=== PATIENT | male | born 1985 | race Two or more races ===

== ENCOUNTER 2021-07-28 08:54 | Emergency (ER) | payer OTHER ==
[~2021-07-28] VITALS: Ht 175.3 cm; Wt 94.5 kg
[2021-07-28 09:14] VITALS: BP 126/82
[2021-07-28] MEDS ORDERED: ACETAMINOPHEN 500 MG TABLET PO ONE (09:30)
[2021-07-28] MEDS ORDERED: LIDOCAINE 5% TRANSDERMAL PATCH TD ONE (09:30)
[2021-07-28] MEDS ORDERED: KETOROLAC TROMETHAMINE 30 MG/ML VIAL IM ONE (09:30)
[2021-07-28] MEDS ORDERED: IBUP-2070 PO (09:41)
[2021-07-28] MEDS ORDERED: LIDO700A15 TP (09:41)
== END 2021-07-28 09:52 | disposition home or self-care (01) ==
LOC: EMS 08:59
DX: S39.012A Strain of muscle, fascia and tendon of lower back, initial encounter (principal); Z98.890 Other specified postprocedural states; X50.0XXA Overexertion from strenuous movement or load, initial encounter; Y93.89 Activity, other specified; Y92.89 Other specified places as the place of occurrence of the external cause; Y99.0 Civilian activity done for income or pay
CPT/HCPCS: 96372; 99283; J1885

== ENCOUNTER 2021-09-26 08:02 | Emergency (ER) | payer OTHER ==
[~2021-09-26] VITALS: Ht 175.3 cm; Wt 96.4 kg
[~2021-09-26 08:02] MED LIST: IBUP-2070 PO; LIDO700A15 TP
[2021-09-26] MEDS ORDERED: CYCLOBENZAPRINE HCL 10 MG TABLET PO ONE (10:00)
[2021-09-26] MEDS ORDERED: KETOROLAC TROMETHAMINE 30 MG/ML VIAL IM ONE (10:00)
[2021-09-26] MEDS ORDERED: LIDOCAINE 5% TRANSDERMAL PATCH TD ONE (10:00)
[2021-09-26] MEDS ORDERED: CYCL-448 PO (11:23)
[2021-09-26 11:32] VITALS: BP 135/81
== END 2021-09-26 11:39 | disposition home or self-care (01) ==
LOC: EMS 08:02
DX: M54.50 Low back pain, unspecified (principal); Z87.39 Personal history of other diseases of the musculoskeletal system and connective tissue
CPT/HCPCS: 96372; 99283; J1885

== ENCOUNTER 2021-12-22 09:35 | Emergency (ER) | payer OTHER ==
[~2021-12-22] VITALS: Ht 175.3 cm; Wt 100.0 kg
[~2021-12-22 09:35] MED LIST changes: +CYCL-448 PO
[2021-12-22 10:14] LABS: BASOPHILS % (AUTO) 0.5 % (0.0-2.0); EOSINOPHILS % (AUTO) 7.8 % (1.0-6.0); HEMOGLOBIN 16.1 g/dL (13.5-17.5); LYMPHOCYTES # (AUTO) 2.1 K/uL (1.0-4.8); LYMPHOCYTES % (AUTO) 28.2 % (22.0-44.0); MEAN CORPUSCULAR HEMOGLOBIN 28.5 pg (26.0-34.0); MEAN CORPUSCULAR HGB CONC 33.4 G/dL (31.0-37.0); MEAN CORPUSCULAR VOLUME 85 fL (80-100); MONOCYTES # (AUTO) 0.4 K/uL (0.1-1.0); MONOCYTES % (AUTO) 5.9 % (2.0-9.0); NEUTROPHILS # (AUTO) 4.4 K/uL (1.8-7.7); NEUTROPHILS % (AUTO) 57.6 % (40.0-70.0); PLATELET COUNT (AUTO) 208 K/uL (150-450); RED BLOOD CELL COUNT(AUTO) 5.62 MIL/uL (4.50-5.90); RED CELL DISTRIBUTION WIDTH 13.7 % (11.5-14.5)
[2021-12-22] MEDS ORDERED: KETOROLAC TROMETHAMINE 30 MG/ML VIAL IVP ONE (10:15)
[2021-12-22] MEDS ORDERED: OMEPRAZOLE 20 MG CAPSULE PO ONE (10:15)
[2021-12-22] MEDS ORDERED: ACETAMINOPHEN 500 MG TABLET PO ONE ×2 (10:15→12:00)
[2021-12-22] MEDS ORDERED: MAG HYDROX/AL HYDROX/SIMETH ES 30 ML SUSPENSION UDCUP PO ONE (10:15)
[2021-12-22] MEDS ORDERED: ONDANSETRON HCL 4 MG/2 ML VIAL IVP ONE (10:15)
[2021-12-22 10:21] LABS: ANION GAP 6 mmol/L (8-16); CALCIUM, TOTAL 8.4 mg/dL (8.8-10.5); CARBON DIOXIDE 27 mmol/L (22-29); CHLORIDE 104 mmol/L (98-107); GLOMERULAR FILTR. RATE CALC > 60 mL/min (>60); GLUCOSE,RANDOM 98 mg/dL (70-110); POTASSIUM 3.9 mmol/L (3.5-5.1); SODIUM SERUM 137 mmol/L (136-145); UREA NITROGEN, BLOOD 10 mg/dL (7-18)
[2021-12-22 10:26] LABS: ALANINE AMINOTRANSFERASE 50 U/L (12-78); ALBUMIN 3.6 g/dL (3.4-5.0); ALKALINE PHOSPHATASE 82 U/L (46-116); ASPARTATE AMINOTRANSFERASE 21 U/L (15-37); BILIRUBIN,TOTAL 0.3 mg/dL (0.1-1.0); LIPASE 61 U/L (73-393); TOTAL PROTEIN, SERUM 7.3 g/dL (6.4-8.2)
[2021-12-22 11:20] VITALS: BP 121/80
[2021-12-22] MEDS ORDERED: MECLIZINE HCL 25 MG TABLET PO ONE (12:00)
[2021-12-22] MEDS ORDERED: ACET-66 PO (12:13)
[2021-12-22] MEDS ORDERED: OMEP20 PO (12:13)
[2021-12-22] MEDS ORDERED: MAG30ORA11 PO (12:13)
== END 2021-12-22 12:38 | disposition home or self-care (01) ==
LOC: EMS 09:39
DX: R10.13 Epigastric pain (principal); K29.70 Gastritis, unspecified, without bleeding; Z87.39 Personal history of other diseases of the musculoskeletal system and connective tissue; Z98.890 Other specified postprocedural states
CPT/HCPCS: 99284; 96374; 96375; 80053; 83690; 85025; 36415; J1885; J2405

== ENCOUNTER 2023-05-17 00:32 | Emergency (ER) | payer OTHER ==
[~2023-05-17] VITALS: Ht 175.3 cm; Wt 91.8 kg
[~2023-05-17 00:32] MED LIST changes: +ACET-66 PO; +IBUP-1492 PO; -IBUP-2070 PO; +MAG30ORA11 PO; +OMEP20 PO
[2023-05-17 00:43] VITALS: TEMP 98.4
[2023-05-17] MEDS ORDERED: TraMADol HCL 50 MG TABLET PO ONE (02:15)
[2023-05-17 03:15] VITALS: BP 120/60; PULSE 65; RESP 15
[2023-05-19] MEDS ORDERED: TRAM-559 PO (16:07)
== END 2023-05-17 04:33 | disposition home or self-care (01) ==
LOC: EMS 00:32
DX: M79.605 Pain in left leg (principal); Z98.890 Other specified postprocedural states
CPT/HCPCS: 99283